=== PATIENT | female | born 1975 | race Caucasian/White ===

== ENCOUNTER 2021-08-30 15:45 | Emergency (ER) | payer SELFPAY ==
[2021-08-30] MEDS ORDERED: Ondansetron 4 MG/2 ML SDV IVPUSH ONE (16:16)
[2021-08-30] MEDS ORDERED: Sodium Chloride 0.9% 10 ML Syringe FLUSH PRN (16:16)
[2021-08-30] MEDS ORDERED: Sodium Chloride 0.9% 1,000 ML IV STA (16:16)
[2021-08-30] MEDS ORDERED: HYDROmorphone 0.5 MG/0.5 ML Syringe IVPUSH ONE ×2 (16:18→18:09)
[2021-08-30] MEDS ORDERED: Sodium Chloride 0.9% 1,000 ML IV ONE (17:54)
--- NOTE | 2021-08-30 18:03 | EDM.PDOC ---
<David Rodas A - Last Filed: 08/30/21 18:54> ED HPI GENERAL MEDICAL PROBLEM - General Chief Complaint: Gastrointestinal Problem Stated Complaint: FLU Time Seen by Provider: 08/30/21 16:01 Source of Information: Reports: Patient History Limitations: Reports: No Limitations - History of Present Illness INITIAL COMMENTS - FREE TEXT/NARRATIVE: The patient presents with nausea, vomiting and upper abdominal pain. This started about 11:30am when she was at work. She has no diarrhea with it. She does not think she ate any bad food. She has not been around anyone who is sick. She does not have a gallbladder but she still has an appendix. She has no dysuria or hematuria. Onset: Sudden Duration: Hour(s): Location: Reports: Abdomen Quality: Reports: Other (cramping) Severity: Moderate Improves with: Reports: None Worsens with: Reports: None Epigastric Pain Score (Numeric/FACES): 7 - Related Data Allergies Allergy/AdvReac Type Severity Reaction Status Date / Time No Known Allergies Allergy Verified 08/30/21 16:54 Home Meds: Home Meds ALPRAZolam [Alprazolam] 0.5 mg PO BID 08/30/21 [History] Cyproheptadine HCl 4 - 8 mg PO BEDTIME PRN 08/30/21 [History] Venlafaxine HCl [Venlafaxine ER] 75 mg PO DAILY 08/30/21 [History] Past Medical History HEENT History: Reports: Impaired Vision Other HEENT History: wears eyeglasses. Gastrointestinal History: Reports: Chronic Constipation ORDER RUNNER History: Reports: Musculoskeletal History: Reports: Fracture Psychiatric History: Reports: Anxiety, Depression, Other (See Below) Other Psychiatric History: insomnia. Hematologic History: Reports: Anemia - Infectious Disease History Infectious Disease History: Reports: Chicken Pox - Past Surgical History HEENT Surgical History: Reports: Adenoidectomy, Tonsillectomy GI Surgical History: Reports: Cholecystectomy Female Surgical History: Reports: Hysterectomy, Other (See Below) Other Female Surgeries/Procedures: partial Hyst. Social & Family History - Tobacco Use Tobacco Use Status *Q: Never Tobacco User Second Hand Smoke Exposure: No - Caffeine Use Caffeine Use: Reports: Energy Drinks - Recreational Drug Use Recreational Drug Use: No ED ROS GENERAL - Review of Systems Review Of Systems: See Below Constitutional: Reports: No Symptoms HEENT: Reports: No Symptoms Respiratory: Reports: No Symptoms Cardiovascular: Reports: No Symptoms Endocrine: Reports: No Symptoms GI/Abdominal: Reports: Abdominal Pain, Nausea, Vomiting. Denies: Diarrhea : Reports: No Symptoms Musculoskeletal: Reports: No Symptoms ED EXAM, GI/ABD - Physical Exam Exam: See Below Exam Limited By: No Limitations General Appearance: Alert, No Apparent Distress Ears: Normal External Exam Nose: Normal Inspection Head: Atraumatic, Normocephalic Neck: Normal Inspection Respiratory/Chest: No Respiratory Distress, Lungs Clear, Normal Breath Sounds Cardiovascular: Regular Rate, Rhythm, No Edema, No Murmur GI/Abdominal Exam: Soft, Non-Tender, No Organomegaly, No Mass Back Exam: Normal Inspection Extremities: Normal Inspection Course - Re-Assessments/Exams Free Text/Narrative Re-Assessment/Exam: 08/30/21 18:55 I ordered an IV NS 1L bolus, zofran 4mg IV, dilaudid 0.5mg IV, labs and UA. Her WBC is elevated at 10.58. Her anion gap is elevated at 17.1. She still is having pain in the mid abdomen. I have ordered more dilaudid 0.5mg IV and reglan 10mg IV and a CT of her abdomen and pelvis. It is change of shift. Dr Verma to take over. Departure - Departure Disposition: Home, Self-Care 01 Clinical Impression: Abdominal pain Qualifiers: Abdominal location: generalized Qualified Code(s): R10.84 - Generalized abdominal pain Vomiting Qualifiers: Vomiting type: unspecified Nausea presence: with nausea Qualified Code(s): R11.2 - Nausea with vomiting, unspecified - Discharge Information Instructions: Abdominal Pain, Adult, [id number], Vomiting, Adult Referrals: PCP,None [Primary Care Provider] - Forms: ED Department Discharge Additional Instructions: Clear liquids until mid morning tomorrow, After that careful bland diet as tolerated. Follow up clinic as needed. Return to ED as needed, especially if pain localizing to R lower abd and becoming more severe and persistent. Sepsis Event Note (ED) - Evaluation Sepsis Screening Result: No Definite Risk <Norberto Verma - Last Filed: 08/30/21 20:53> Course - Vital Signs Last Recorded V/S: Last Vital Signs Temp 98.3 F 08/30/21 18:53 Pulse 78 08/30/21 18:53 Resp 16 08/30/21 18:53 BP 106/69 08/30/21 18:53 Pulse Ox 97 08/30/21 18:53 - Orders/Labs/Meds Orders: Active Orders 24 hr Category Date Time Status Peripheral IV Care [RC] . DIRECTED Care 08/30/21 16:17 Active Abdomen Pelvis wo Cont [CT] Stat Exams 08/30/21 17:53 Taken UA W/MICROSCOPIC [URIN] Stat Lab 08/30/21 16:16 Ordered Sodium Chloride 0.9% [Saline Flush] Med 08/30/21 16:16 Active 10 ml FLUSH ASDIRECTED PRN ED Antiemetic Medication Reflex [OM.PC] Stat Oth 08/30/21 16:17 Ordered Peripheral IV Insertion Adult [OM.PC] Stat Oth 08/30/21 16:16 Ordered Medication Orders Sodium Chloride (Sodium Chloride 0.9% 10 Ml Syringe) 10 ml FLUSH ASDIRECTED PRN PRN Reason: Keep Vein Open Last Admin: 08/30/21 16:49 Dose: 10 ml Documented by: ROHAN Labs: Laboratory Tests 08/30/21 08/30/21 Range/Units 15:50 15:50 WBC 10.58 H (3.98-10.04) K/mm3 RBC 4.73 (3.98-5.22) M/mm3 Hgb 14.0 (11.2-15.7) gm/dl Hct 41.7 (34.1-44.9) % MCV 88.2 (79.4-94.8) fl MCH 29.6 (25.6-32.2) pg MCHC 33.6 (32.2-35.5) g/dl RDW Std Deviation 43.1 (36.4-46.3) fL Plt Count 326 (182-369) K/mm3 MPV 9.8 (9.4-12.3) fl Neut % (Auto) 88.5 H (34.0-71.1) % Lymph % (Auto) 8.6 L (19.3-51.7) % Overton % (Auto) 2.5 L (4.7-12.5) % Eos % (Auto) 0 L (0.7-5.8) Baso % (Auto) 0.2 (0.1-1.2) % Neut # (Auto) 9.37 H (1.56-6.13) K/mm3 Lymph # (Auto) 0.91 L (1.18-3.74) K/mm3 Overton # (Auto) 0.26 (0.24-0.36) K/mm3 Eos # (Auto) 0.00 L (0.04-0.36) K/mm3 Baso # (Auto) 0.02 (0.01-0.08) K/mm3 Sodium 139 (136-145) mEq/L Potassium 4.1 (3.5-5.1) mEq/L Chloride 103 (98-107) mEq/L Carbon Dioxide 23 (21-32) mEq/L Anion Gap 17.1 H (5-15) BUN 13 (7-18) mg/dL Creatinine 0.7 (0.55-1.02) mg/dL Est Cr Clr Drug Dosing 99.15 mL/min Estimated GFR (MDRD) > 60 (>60) mL/min BUN/Creatinine Ratio 18.6 H (14-18) Glucose 109 H (70-99) mg/dL Calcium 8.8 (8.5-10.1) mg/dL Total Bilirubin 0.8 (0.2-1.0) mg/dL AST 14 L (15-37) U/L ALT 25 (14-59) U/L Alkaline Phosphatase 107 (46-116) U/L C-Reactive Protein 0.3 (<1.0) mg/dL Total Protein 7.4 (6.4-8.2) g/dl Albumin 4.1 (3.4-5.0) g/dl Globulin 3.3 gm/dL Albumin/Globulin Ratio 1.2 (1-2) Lipase 88 (73-393) U/L Meds: Medications Generic Name Dose Route Start Last Admin Trade Name Freq PRN Reason Stop Dose Admin Sodium Chloride 10 ml 08/30/21 16:16 08/30/21 16:49 Sodium Chloride 0.9% 10 Ml Syringe FLUSH 10 ml ASDIRECTED PRN Administration Keep Vein Open Discontinued Medications Generic Name Dose Route Start Last Admin Trade Name Freq PRN Reason Stop Dose Admin Diphenhydramine HCl 50 mg 08/30/21 18:09 08/30/21 18:21 Diphenhydramine 50 Mg/Ml Sdv IVPUSH 08/30/21 18:10 50 mg ONETIME ONE Administration Hydromorphone HCl 0.5 mg 08/30/21 16:18 08/30/21 16:47 Hydromorphone 0.5 Mg/0.5 Ml Syringe IVPUSH 08/30/21 16:19 0.5 mg ONETIME ONE Administration Hydromorphone HCl 0.5 mg 08/30/21 18:09 08/30/21 18:19 Hydromorphone 0.5 Mg/0.5 Ml Syringe IVPUSH 08/30/21 18:10 0.5 mg ONETIME ONE Administration Sodium Chloride 1,000 mls @ 1,000 mls/hr 08/30/21 16:16 08/30/21 16:50 Normal Saline IV 08/30/21 17:15 1,000 mls/hr .BOLUS STA Administration Sodium Chloride 1,000 mls @ 1,000 mls/hr 08/30/21 17:54 08/30/21 18:16 Normal Saline IV 08/30/21 18:53 1,000 mls/hr ONETIME ONE Administration Magnesium Citrate 296 ml 08/30/21 20:18 08/30/21 20:32 Magnesium Citrate Solution 296 Ml Bottle PO 08/30/21 20:19 296 ml ONETIME ONE Administration Metoclopramide HCl 10 mg 08/30/21 18:08 08/30/21 18:17 Metoclopramide 10 Mg/2 Ml Sdv IVPUSH 08/30/21 18:09 10 mg ONETIME ONE Administration Ondansetron HCl 4 mg 08/30/21 16:16 08/30/21 16:45 Ondansetron 4 Mg/2 Ml Sdv IVPUSH 08/30/21 16:17 4 mg ONETIME ONE Administration - Re-Assessments/Exams Free Text/Narrative Re-Assessment/Exam: 08/30/21 19:41 Have assumed care from Dr Rodas, change of shift. I agree with his hx and exam as documented. Labs are relatively OK, she feels better after 1 liter IV fluid. Awaiting Ct report. 08/30/21 20:19CT shows increased stool in the colon, appendix is good. No other acute findings. See Radiology report for details. Discharge instr. as documented. Departure - Departure Time of Disposition: 20:20 Condition: Fair Sepsis Event Note (ED) - Focused Exam Vital Signs: Vital Signs Temp Pulse Resp BP Pulse Ox 08/30/21 18:53 98.3 F 78 16 106/69 97 08/30/21 15:45 98.0 F 76 12 105/79 100
[2021-08-30] MEDS ORDERED: Metoclopramide 10 MG/2 ML SDV IVPUSH ONE (18:08)
[2021-08-30] MEDS ORDERED: diphenhydrAMINE 50 MG/ML SDV IVPUSH ONE (18:09)
[2021-08-30] MEDS ORDERED: Magnesium Citrate Solution 296 ML Bottle PO ONE (20:18)
--- NOTE | 2021-08-31 09:21 | CT ---
CT abdomen and pelvis Technique: Multiple axial sections were obtained from above the dome of the diaphragm inferiorly through the pubic symphysis. Intravenous and oral contrast were not utilized. Reconstructed coronal and sagittal images were obtained. Comparison: No prior abdominal imaging is available. Findings: Small nonobstructing stone is noted within the right kidney measuring around 2 mm. Kidneys otherwise appear within normal limits. Ureters show no dilatation. No ureteral calculus is seen. No bladder calculus is seen. Visualized lung bases show minimal dependent atelectasis. Small low density lesion is noted within the dome of the right lobe of the liver measuring 9 mm. This is compatible with a small cyst. Liver shows no additional abnormality. Small hiatal hernia is seen. Spleen size is normal. Surgical clips are seen from prior cholecystectomy. Adrenal glands show no nodule. Pancreas shows no discrete abnormality. Abdominal aorta shows no aneurysm. No retroperitoneal adenopathy or mesenteric abnormalities are seen. Appendix is seen which is normal. No pelvic mass or adenopathy is seen. No free fluid or inflammatory change is seen. No bowel dilatation is seen. Minimal increased stool is seen within portions of the colon. Bone window settings were reviewed. Spondylolytic defects are seen on both sides at L5-S1. Osseous findings are otherwise within normal limits for the patient's age. Impression: 1. 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 Small cyst within the dome of the right lobe of the liver. Minimal increased stool within portions of the colon is seen. 2. Nothing acute is appreciated on noncontrast CT study of the abdomen and pelvis. Diagnostic code #2 I agree with preliminary report from [facility], finalized on 08/30/21, 8:55 PM [employer], code 1
== END 2021-08-30 20:42 | disposition home or self-care (01) ==
LOC: JD.ED 15:51
DX: R10.84 Generalized abdominal pain (principal); R11.2 Nausea with vomiting, unspecified
CPT/HCPCS: 36415; 74176; 80053; 83690; 85025; 86140; 96374; 96375; 96376; 99284; A9270; J1170; J1200; J2405; J2765; J7030